=== PATIENT | female | born 2000 | race Caucasian/White ===

== ENCOUNTER → 2025-05-12 | Outpatient (CLI) | payer SELFPAY ==
--- NOTE | 2025-05-12 11:06 | XR_ITS ---
Examination: Complete OB ultrasound greater than 14 weeks Date and time of exam: May 12, 2025 1113 hours INDICATIONS: Diagnosis high risk Findings: Viable intrauterine single fetus with single amniotic sac presentation cephalic Cardiac motion 162 BPM Placenta posterior 2. Umbilical cord insertion 3 vessel seen. Amniotic fluid index 13.8 cm spine maternal right Right ovary 4.7 cm arterial flow. Left ovary 3.1 cm arterial flow. Composite estimated gestational age based on BPD, head circumference, abdominal circumference, femur length is 35 weeks 5 days Estimated weight 2824 g. Survey of intracranial anatomy, spinal anatomy, abdominal anatomy, four-chamber heart performed with no abnormalities identified. Impression: Viable intrauterine gestation cephalic presentation.
== END | disposition home or self-care (01) ==
PROVIDERS: PCP Obstetrics & Gynecology; Referring Provider Obstetrics & Gynecology; Visit Provider Obstetrics & Gynecology
DX: O09.93 Supervision of high risk pregnancy, unspecified, third trimester (principal); Z3A.35 35 weeks gestation of pregnancy
CPT/HCPCS: 76805

== ENCOUNTER 2025-06-17 06:08 | Observation (INO) | payer OTHER, SELFPAY ==
[2025-06-17 06:13] VITALS: TEMP 36.9
[2025-06-17 06:25] VITALS: BP 125/72; PULSE 63; PULSE 67; O2SAT 98
[2025-06-17 06:54] VITALS: BP 125/72; PULSE 63; RESP 18; RESP 99; TEMP 36.9; BMI 37.3
[2025-06-17 08:06] VITALS: BP 118/65; PULSE 67
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
== END 2025-06-17 08:45 | disposition home or self-care (01) ==
PROVIDERS: Admitting Provider Obstetrics & Gynecology; Visit Provider Obstetrics & Gynecology
DX: Z34.03 Encounter for supervision of normal first pregnancy, third trimester (principal); Z3A.40 40 weeks gestation of pregnancy
CPT/HCPCS: 59025; 59899; 84112; 85025; 86780; 86850; 86900; 86901

== ENCOUNTER 2025-06-17 13:54 | Inpatient (IN) | payer OTHER, SELFPAY ==
[2025-06-17] VITALS (100 sets, daily range): BP systolic 89–140; BP diastolic 48–76; PULSE 51–113; RESP 18–99; TEMP 36.6–37.1; O2SAT 91–100; BMI 37.3
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
[2025-06-17 17:50] LABS: Basophils # (Auto) 0.0 Thou/mm3 (0.0-0.2); Basophils % (Auto) 0 % (0-2.5); Eosinophils # (Auto) 0.0 Thou/mm3 (0.0-0.5); Eosinophils % (Auto) 0 % (0-10); Hematocrit 36.0 % (36.0-46.0); Hemoglobin 12.5 g/dL (12.0-16.0); Immature Granulocytes Auto 0.07 Thou/mm3 (0.00-0.00); Lymphocytes # (Auto) 1.5 Thou/mm3 (1.0-4.8); Lymphocytes % (Auto) 9 % (10-50); Mean Corpuscular HGB Conc 34.7 g/dl (31.0-37.0); Mean Corpuscular Hemoglobin 28.7 pg (25.0-35.0); Mean Corpuscular Volume 83 fL (80-100); Monocytes # (Auto) 0.9 Thou/mm3 (0.0-0.8); Monocytes % (Auto) 5 % (0-12); Neutrophils # (Auto) 14.0 Thou/mm3 (1.8-7.7); Neutrophils % (Auto) 85 % (37-80); Nucleated Red Blood Cell # 0.00 Thou/mm3 (0.00-0.00); Nucleated Red Blood Cell % 0 /100 WBC (0); Platelet Count 247 Thou/mm3 (140-440); RDW Standard Deviation 41.6 fL (36.4-46.3); Red Blood Count 4.35 Miln/mm3 (4.00-5.20); White Blood Count 16.5 Thou/mm3 (3.6-11.0)
[2025-06-17 18:32] LABS: Syphilis Nonreactive (Nonreactive)
[2025-06-17] MEDS: fentaNYL CIT INJ 50 mCg/ML AMP 2ML 100 MCG IVP (19:05)
[2025-06-17] MEDS: RINGERS LACTATED 1000 ML 1,000 ML 999 ML IV ×3 (19:10→21:09)
[2025-06-17 22:34] LABS: Amphetamine/Metham Scrn,Ur OB Negative (Negative); Benzoylecgonine Screen, Ur OB Negative (Negative); Opiate Screen,Urine OB Negative (Negative); THC Screen,Urine OB Negative (Negative)
[2025-06-18] VITALS (66 sets, daily range): BP systolic 92–157; BP diastolic 46–73; PULSE 51–155; RESP 16–18; TEMP 36.4–37.2; O2SAT 79–100
[2025-06-18] MEDS: LIDOCAINE HCL 1% 20 ML VIAL INFL (00:30)
[2025-06-18] MEDS: OXYTOCIN in NS 20 units 20 UNIT/1,000 ML BAG 999 UNIT IV (00:40)
[2025-06-18] MEDS: METHYLERGONOVINE INJ 0.2 MG/ML VIAL IM (00:50)
[2025-06-18] MEDS: MINERAL OIL 30 ML UDC TOP (00:53)
[2025-06-18] MEDS: BENZO/LANO/ALOE (Dermoplast) 60 GM CAN 1 SPRAY TOP (00:54)
--- NOTE | 2025-06-18 01:25 | PD.LDDELS ---
Data (Davis) Data Hx Section: No : 1 Term: 0 : 0 Livin Abortions: Spontaneous & Theraputic: 0 Delivery Data ([place]) Labor Data Initiation of labor: Spontaneous Induction/Augmentation Agent: None ROM date: 06/17/25 ROM time: 18:45 Amniotic membrane rupture type: Spontaneous Amniotic fluid description: Clear Delivery Data Onset of labor date: 06/17/25 Onset of labor time: 15:00 Complete dilation date: 06/17/25 Complete dilation time: 23:20 delivery date: 06/18/25 delivery time: 00:37 Placenta delivery date: 06/18/25 Placenta delivery time: 00:45 Stage 1 total time: Labor - Stage 1 Duration 8 hours and 20 minutes Delivered by: Usha Ruvalcaba Delivery nurse: Mariela Apple RN [place] nurse: Izzy Wahl RN, Irais Blanchard, KEENAN Arboreal Scientist at delivery: No Support person(s) at delivery: Significant other, Mother Delivery Method Delivery method: Normal Vaginal Delivery Presentation: Vertex Anesthesia Type Anesthesia Type: Epidural Placenta Placenta delivery description: Spontaneous Cord blood sent to lab: Yes cord blood collection: Cord Blood Type Episiotomy Episiotomy description: None EBL Estimated blood loss (ml): 350 Umbilical Cord cord description: 3 Vessels Additional Procedures Rafia is a 25yo [id number] s/p uncomplicated at 40&3wk after presenting in active labor, delivering at 0037 on 06/18/2025. On presentation, SCE was 3-4cm. She progressed without augmentation to C/C/0 at which point she began pushing. She received an epidural and had SROM in labor. With good maternal pushing efforts, infant's head delivered OA and restituted MESSI. Right anterior shoulder delivered easily followed by posterior shoulder and corpus. had spontaneous cry and was vigorous. Apgars 9/9. Infant placed on maternal abdomen where nose/mouth were suctioned and dried/stimulated. After approximately 2 minutes, cord was clamped x2 and cut by FOB. Cord blood collected for typing. With fundal massage and cord traction, placenta delivered spontaneously and intact with 3 vessel centrally inserted cord. Fundal massage performed and IV pitocin given per protocol with fundus then firm at u-2cm and hemostasis noted. Inspection of perineum and vagina revealed a periclitoral/periurethral laceration and a laceration of left sidewall leading into left labia which were repaired in routine fashion with 3-0 vicryl after anesthetizing with 1% lidocaine- total reapproximation and hemostasis achieved (red janene catheter was placed within urethra during repair of periurethal laceration to avoid incorporation of urethra- this was uncomplicated and catheter immediately removed). Small trickle of blood, so sweep just within cervix/ARABELLA performed which retrieved a small amount of clot. 0.2mg IM methergine given and bimanual massage performed with observed hemostasis after. All counts correct x2. Mom and infant were doing well when I left the room. Usha Ruvalcaba MD Complications Complications: none [place] Data ([place]) [place] Data order: 1 's gender: Female Identification band number: [id number] 1 minute: 9 5 minutes: 9
[2025-06-18] MEDS: DOCUSATE SOD 100 MG CAPSULE PO ×2 (07:40→20:21)
[2025-06-18] MEDS: IBUPROFEN TAB 400 MG TABLET 800 MG PO ×2 (07:41→15:27)
[2025-06-18 09:17] LABS: Basophils # (Auto) 0.0 Thou/mm3 (0.0-0.2); Basophils % (Auto) 0 % (0-2.5); Eosinophils # (Auto) 0.0 Thou/mm3 (0.0-0.5); Eosinophils % (Auto) 0 % (0-10); Hematocrit 33.7 % (36.0-46.0); Hemoglobin 11.7 g/dL (12.0-16.0); Immature Granulocytes Auto 0.07 Thou/mm3 (0.00-0.00); Lymphocytes # (Auto) 1.8 Thou/mm3 (1.0-4.8); Lymphocytes % (Auto) 11 % (10-50); Mean Corpuscular HGB Conc 34.7 g/dl (31.0-37.0); Mean Corpuscular Hemoglobin 29.3 pg (25.0-35.0); Mean Corpuscular Volume 84 fL (80-100); Monocytes # (Auto) 1.5 Thou/mm3 (0.0-0.8); Monocytes % (Auto) 9 % (0-12); Neutrophils # (Auto) 14.0 Thou/mm3 (1.8-7.7); Neutrophils % (Auto) 80 % (37-80); Nucleated Red Blood Cell # 0.00 Thou/mm3 (0.00-0.00); Nucleated Red Blood Cell % 0 /100 WBC (0); Platelet Count 219 Thou/mm3 (140-440); RDW Standard Deviation 43.4 fL (36.4-46.3); Red Blood Count 4.00 Miln/mm3 (4.00-5.20); White Blood Count 17.4 Thou/mm3 (3.6-11.0)
--- NOTE | 2025-06-18 12:16 | PC.CC ---
Rafia Shepard is a 25-year-old female admitted for labor and delivery care. Soil Surveyor made contact with Pt at bedside to complete ob assessment and discuss discharge disposition. Role and reason for the contact was explained to Pt. Demographic information was verified. Pt identified father of baby Tae Stokes [phone] as surrogate decision maker. Pt is independent with all ADLs, no source of DME. PCP is Maida. At time of discharge patient will return home, family will provide transportation. Mother plans on breast feeing, has car seat, and all supplies for baby. Mother denies any use of substance, no DV, no CPS. Mother reports support system provided by extended family. Pt has hx of THC use. Discharge Plan: Home Next of Kin: Tae Stokes [phone] PCP: Maida
--- NOTE | 2025-06-18 12:55 | PD.LDPPPRG ---
Subjective Subjective Interval history: Patient doing well overall. Minimal discomfort. She is ambulating no lightheadedness/dizziness. Voiding spontaneously, no issues. Tolerating regular diet without nausea/vomiting. Lochia tapering as expected. No fevers/chills, no CP/SOB. Exam Vital Signs Temp Pulse Resp BP Pulse Ox 97.6 F 65 16 109/70 98 06/18/25 11:26 06/18/25 11:26 06/18/25 11:26 06/18/25 11:26 06/18/25 11:26 Narrative Exam General: well developed, well nourished, no acute distress, conversant Cardiac: normal heart rate Lungs: breathing without distress Abdomen: soft, post-gravid, non-tender, no rebound or guarding, Fundus firm at u-3cm. Extremities: no pain with palpation of calves, trace edema of BLE Objective Labs 06/18/25 08:30 Labs: Laboratory Results - last 24 hr 06/17/25 06/17/25 06/18/25 17:25 21:30 08:30 WBC 16.5 H 17.4 H RBC 4.35 4.00 Hgb 12.5 11.7 L Hct 36.0 33.7 L MCV 83 84 MCH 28.7 29.3 MCHC 34.7 34.7 RDW Std Deviation 41.6 43.4 Plt Count 247 219 Neut % (Auto) 85 H 80 Lymph % (Auto) 9 L 11 Mcdowell % (Auto) 5 9 Eos % (Auto) 0 0 Baso % (Auto) 0 0 Neut # (Auto) 14.0 H 14.0 H Lymph # (Auto) 1.5 1.8 Mcdowell # (Auto) 0.9 H 1.5 H Eos # (Auto) 0.0 0.0 Baso # (Auto) 0.0 0.0 Immature Gran # (Auto) 0.07 H 0.07 H Absolute Nucleated RBC 0.00 0.00 Immature Gran % 0 0 Nucleated RBC % 0 0 Urine Opiates Screen Negative U Amphetamin/Meth Scrn Negative U Cocaine Metab Screen Negative U Marijuana (THC) Screen Negative Syphilis Serology Nonreactive Blood Type B Positive Antibody Screen NEGATIVE Blood Bank Wristband ID Yes Assessment & Plan Problem List (1) Active labor at term: Status: Acute Assessment and plan: Rafia is a 25yo [id number] s/p uncomplicated at 40&3wk after presenting in active labor, delivering at 0037 on 06/18/2025. Doing well on PPD 1. Vitals wnl, benign exam. Hemodynamically stable with no evidence of infection. Appropriate change in H/H from 12.5 to 11.7. complicated by: -Current BMI 37.3 -A1GDM -placenta previa, resolved on follow up ultrasound -PN in [facility], transferred to Dr. Coates in Jun Plan: -Continue routine care -Regular diet -Encourage ambulation -Anticipate discharge home tomorrow if meeting all milestones (2) 40 weeks gestation of : Status: Acute (3) Gestational diabetes: Status: Acute Time Spent With Patient Time: Total time spent is greater than 50% in coordination of care (as documented) at patient's floor/unit and/or counseling patient:
[2025-06-18 15:31] LABS: Chlamydia trachomatis PCR Negative (Not Detect); Neisseria Gonorrhoeae DNA PCR Negative (Not Detect); Trichomonas Negative (Negative)
[2025-06-18] MEDS: FAMOTIDINE 20 MG TABLET PO (17:35)
[2025-06-19 04:03] VITALS: BP 111/72; PULSE 84; RESP 18; TEMP 36.6; O2SAT 97
[2025-06-19 07:30] VITALS: BP 107/70; PULSE 67; RESP 18; TEMP 36.6; O2SAT 98
[2025-06-19] MEDS: IBUPROFEN TAB 400 MG TABLET 800 MG PO (07:38)
[2025-06-19] MEDS: DOCUSATE SOD 100 MG CAPSULE PO (07:39)
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
--- NOTE | 2025-06-19 11:54 | PD.LDDS ---
DS: Providers Provider Date of admission: 06/17/25 17:08 Primary care physician: Physician No Primary/Family Admitting Provider: Usha Ruvalcaba MD Attending Provider on Admission: Usha Ruvalcaba MD Consults: 06/18/25 01:21 Referral Routine Comment: Attending Provider on DC: Usha Ruvalcaba MD Discharging Provider: Usha Ruvalcaba MD DS: Diagnosis Discharge Diagnosis (1) care and examination immediately after delivery: Status: Acute (2) Active labor at term: Status: Acute (3) Gestational diabetes: Status: Acute (4) 40 weeks gestation of : Status: Acute Problem List Completed Was Problem List Reviewed/Reconciled?: Yes Summary/Hosp Course Brief History: Rafia is a 25yo [id number] s/p uncomplicated at 40&3wk after presenting in active labor, delivering at 0037 on 06/18/2025. Doing well on PPD 2. She has had an uncomplicated course, meeting all milestones and feels ready for discharge home. She is ambulating without lightheadedness, tolerating regular diet no n/v, spontaneously voiding without issue. She has no chest pain or shortness of breath. No fevers or chills. Minimal, appropriate discomfort. Vitals normal, benign exam. Hemodynamically stable with no evidence of infection. PP Hgb 11.7 from 12.5. Peripartum Data Delivery Method: Normal Vaginal Delivery Episiotomy Description: None Status at Discharge Functional status at discharge: independent ambulation Overall status at discharge: patient is back to baseline Time Spent with Patient Time attestation: Total time spent providing and/or coordinating discharge services: Exam Vital Signs Temp Pulse Resp BP Pulse Ox 97.9 F 67 18 107/70 98 06/19/25 07:30 06/19/25 07:30 06/19/25 07:30 06/19/25 07:30 06/19/25 07:30 Narrative Exam General: well developed, well nourished, no acute distress, conversant Cardiac: normal heart rate Lungs: breathing without distress Abdomen: soft, post-gravid, non-tender, no rebound or guarding, Fundus firm at u-3cm. Extremities: no pain with palpation of calves, trace edema of BLE Discharge Plan Plan Patient Disposition: HOME (Self Care) Patient condition on transfer: Stable Prescriptions/Referrals Prescriptions/Med Rec: New docusate sodium 100 mg Capsule 100 mg PO BID 10 Days Qty: 20 0RF ibuprofen 800 mg tablet 800 mg PO Q8H PRN (Reason: See Comments) 10 Days Qty: 20 0RF Referrals: No Primary/Family,Physician [Primary Care Provider] Patient/Caregiver Discharge Instructions Discharge Activity: activity as tolerated and other Other Discharge Activity Instructions:: vaginal rest and no heavy lifting more than 10 pounds for 6 weeks Other Discharge Diet Instructions: regular Education Materials: After a Vaginal , Breast Care After , Print Language: Bangladeshi Activity Restrictions/Additional Instructions: follow up with Associate Professor Of English in 2 weeks for visit, call clinic to schedule appointment Stand Alone Forms: Naty Award Info., Patient Portal Info Letter Discharge Order Discharge Orders: Discharge (Routine); Ordered 06/19/25 Ordered By: Usha Ruvalcaba Planned Discharge Date 06/19/25 (3) Gestational diabetes Qualifiers: Gestational diabetes mellitus control: diet-controlled Trimester: third trimester Qualified Code(s): O24.410 - Gestational diabetes mellitus in , diet controlled
== END 2025-06-19 12:12 | disposition home or self-care (01) | DRG 807 ==
LOC: S4SX 06-18 00:19 → S4NX 06-18 11:36 → S4SX 06-20 06:36 → S4NX 06-20 06:36
PROVIDERS: Admitting Provider Obstetrics & Gynecology; Visit Provider Obstetrics & Gynecology
DX: O48.0 Post-term pregnancy (principal); O24.420 Gestational diabetes mellitus in childbirth, diet controlled; O71.82 Other specified trauma to perineum and vulva; Z37.0 Single live birth; Z3A.40 40 weeks gestation of pregnancy
CPT/HCPCS: 36415; 59025; 59409; 80307; 85025; 86780; 86850; 86900; 86901; 87491; 87591; 87661; 94762; J2210; J2590; J3010; J3490; J7120; A9270